=== PATIENT | male | born 1985 | race Caucasian/White ===

== ENCOUNTER 2018-10-06 06:07 | Emergency (ER) | payer SELFPAY ==
[2018-10-06] MEDS ORDERED: CYCLOBENZAPRINE 10 MG TAB ONE (07:06)
[2018-10-06] MEDS ORDERED: IBUPROFEN 400 MG TAB ONE (07:07)
--- NOTE | 2018-10-06 07:15 | ER ---
Nurse's Notes [facility] Name: Rick Kelly Age: 32 yrs Sex: Male : 1985 Arrival Date: 10/06/2018 Time: 06:09 Bed 5 Private MD: Diagnosis: Low back pain Presentation: 10/06 06:10 Presenting complaint: Patient states: that he has been having lower back pain on and fc off for the past 2 months, has gotten worse the past 3 days. Worse with any movement. Denies any urinary or bowel problems. Transition of care: patient was not received from another setting of care. Onset of symptoms was July 2018. Risk Assessment: Do you want to hurt yourself or someone else? Patient reports no desire to harm self or others. Initial Sepsis Screen: Does the patient meet any 2 criteria? HR > 90 bpm. Yes Does the patient have a suspected source of infection? No. Patient's initial sepsis screen is negative. Care prior to arrival: None. 06:10 Method Of Arrival: Ambulatory 06:10 Acuity: EM 4 Triage Assessment: 06:10 General: Appears uncomfortable, Behavior is calm, cooperative, appropriate for age. fc Pain: Complains of pain in low back area Pain currently is 6 out of 10 on a pain scale. Quality of pain is described as aching, throbbing, Pain began gradually, Is continuous, Aggravated by increased activity, repositioning. EENT: No deficits noted. Neuro: Level of Consciousness is awake, alert, obeys commands, Oriented to person, place, time, situation, Appropriate for age. Cardiovascular: No deficits noted. Respiratory: No deficits noted. GI: No deficits noted. : No deficits noted. Derm: Skin is pink, warm \T\ dry. Musculoskeletal: Circulation, motion, and sensation intact. Capillary refill < 3 seconds, Range of motion: intact in all extremities, Reports pain in low back area. Historical: - Allergies: 06:24 Amoxicillin; fc - Home Meds: 06:24 None [Active]; fc - PMHx: 06:24 None; fc - PSHx: 06:24 left ft sx - club ft; fc - Immunization history:: Last tetanus immunization: up to date. - Social history:: Smoking status: Patient/guardian denies using tobacco, Patient uses alcohol, on a daily basis. Patient/guardian denies using street drugs. - Ebola Screening: : Patient negative for fever greater than or equal to 101.5 degrees Fahrenheit, and additional compatible Ebola Virus Disease symptoms Patient denies exposure to infectious person Patient denies travel to an Ebola-affected area in the 21 days before illness onset. Screenin:23 Abuse screen: Denies threats or abuse. Nutritional screening: No deficits noted. Tuberculosis screening: No symptoms or risk factors identified. Fall Risk None identified. Assessment: 06:30 General: Appears in no apparent distress. Behavior is appropriate for age. Pain: lp1 Complains of pain in lumbar area Pain currently is 8 out of 10 on a pain scale. Neuro: Level of Consciousness is awake, alert, obeys commands, Oriented to person, place, time, situation, Gait is steady. Cardiovascular: Patient's skin is warm and dry. Respiratory: Respiratory effort is even, unlabored. GI: No signs and/or symptoms were reported involving the gastrointestinal system. : No signs and/or symptoms were reported regarding the genitourinary system. EENT: No signs and/or symptoms were reported regarding the EENT system. Derm: Skin is pink, warm \T\ dry. Musculoskeletal: Circulation, motion, and sensation intact. Range of motion: intact in all extremities. 07:00 Reassessment: Patient returned from radiology. lp1 Vital Signs: 06:10 BP 124 / 84; Pulse 108; Resp 18; Temp 98.9(O); Pulse Ox 99% on R/A; Weight 124.74 kg fc (R); Height 6 ft. 2 in. (187.96 cm) (R); Pain 6/10; 06:10 Body Mass Index 35.31 (124.74 kg, 187.96 cm) ED Course: 06:09 Patient arrived in ED. ds1 06:10 Arm band placed on Patient placed in an exam room, on a stretcher. 06:23 Triage completed. 06:23 Patient has correct armband on for positive identification. Bed in low position. Call light in reach. Pulse ox on. NIBP on. 06:23 No provider procedures requiring assistance completed. fc 06:40 Tutu Shearer PA is PHCP. cp 06:41 Jose Avalos MD is Attending Physician. cp 06:54 Hays, Larissa, RN is Primary Nurse. lp1 06:58 X-ray completed. Patient tolerated procedure well. jb2 07:00 XRAY Lumbar Spine (3 Views) In Process Unspecified. EDMS 07:07 Primary Nurse role handed off by Larissa Hays, RN 07:07 Rio Burris, RN is Primary Nurse. sg 07:11 Patient did not have IV access during this emergency room visit. lp1 Administered Medications: 06:54 Not Given (Med not available): TORadol 60 mg IM once lp1 07:08 Drug: Flexeril 10 mg Route: PO; lp1 07:09 Drug: Ibuprofen 800 mg Route: PO; lp1 Outcome: 07:14 Discharge ordered by MD. cp 07:21 Discharged to home ambulatory. 07:21 Condition: good 07:21 Discharge instructions given to patient, Instructed on discharge instructions, follow up and referral plans. no drinking with medication, no driving heavy equipment, medication usage, safety practices, Demonstrated understanding of instructions, follow-up care, medications, Prescriptions given X 2. 07:21 Patient left the ED. ss Signatures: Dispatcher [employer] EDPR Rio Burris, RN RN David Escalante jb2 Allie Fuller RN MATTHEW Lalita Flores ds1 Joyce Cooley RN RN Larissa Hays, RN RN lp1 Tutu Shearer PA PA cp
--- NOTE | 2018-10-06 07:15 | EDPHYS ---
Physician Documentation [facility] Name: Rick Kelly Age: 32 yrs Sex: Male : 1985 Arrival Date: 10/06/2018 Time: 06:09 Bed 5 Private MD: ED Physician Jose Avalos HPI: 10/06 06:50 This 32 yrs old Male presents to ER via Ambulatory with complaints of Back cp Pain. 06:50 The patient presents with pain that is acute, with no known mechanism of injury. The cp symptoms are located in the low back. Onset: The symptoms/episode began/occurred 2 month(s) ago, and became worse 3 day(s) ago. The pain does not radiate. Associated signs and symptoms: Pertinent negatives: abdominal pain, chest pain, constipation, fever, hematuria, incontinence, urinary retention, weakness. The problem was sustained from unknown cause. Modifying factors: the patient symptoms are aggravated by standing, walking. Historical: - Allergies: 06:24 Amoxicillin; fc - Home Meds: 06:24 None [Active]; fc - PMHx: 06:24 None; fc - PSHx: 06:24 left ft sx - club ft; fc - Immunization history:: Last tetanus immunization: up to date. - Social history:: Smoking status: Patient/guardian denies using tobacco, Patient uses alcohol, on a daily basis. Patient/guardian denies using street drugs. - Ebola Screening: : Patient negative for fever greater than or equal to 101.5 degrees Fahrenheit, and additional compatible Ebola Virus Disease symptoms Patient denies exposure to infectious person Patient denies travel to an Ebola-affected area in the 21 days before illness onset. ROS: 06:55 Constitutional: Negative for body aches, chills, fever, poor PO intake. cp 06:55 Eyes: Negative for injury, pain, redness, and discharge. cp Exam: 07:00 Constitutional: The patient appears in no acute distress, alert, awake, non-toxic, well cp developed, well nourished. 07:00 Head/Face: Normocephalic, atraumatic. cp 07:00 Eyes: Periorbital structures: appear normal, Conjunctiva: normal, no exudate, no injection, Sclera: no appreciated abnormality, Lids and lashes: appear normal, bilaterally. 07:00 ENT: External ear(s): are unremarkable, Nose: is normal, Mouth: is normal, Posterior pharynx: is normal, airway is patent. 07:00 Neck: ROM/movement: is normal, is supple, without pain, no range of motions limitations, no nuchal rigidity. 07:00 Chest/axilla: Inspection: normal. 07:00 Cardiovascular: Rate: tachycardic. 07:00 Respiratory: the patient does not display signs of respiratory distress, Respirations: normal, no use of accessory muscles, no retractions, no splinting, no tachypnea, Breath sounds: are clear throughout. 07:00 Abdomen/GI: Exam negative for discomfort, distension, guarding, Inspection: abdomen appears normal. 07:00 Back: pain, that is moderate, of the low back area, ROM is painful, Straight leg raises: of both lower extremities does not illicit pain. 07:00 Skin: no rash present. 07:00 Neuro: Motor: moves all fours, strength is normal, Sensation: is normal, Gait: is steady, Deep tendon reflexes are 2+ (normal) in the right patellar, right Achilles, left patellar and left Achilles. Vital Signs: 06:10 BP 124 / 84; Pulse 108; Resp 18; Temp 98.9(O); Pulse Ox 99% on R/A; Weight 124.74 kg fc (R); Height 6 ft. 2 in. (187.96 cm) (R); Pain 6/10; 06:10 Body Mass Index 35.31 (124.74 kg, 187.96 cm) fc MDM: 06:41 Patient medically screened. cp 06:50 Differential diagnosis: Cholelithiasis chronic back pain, ruptured disc, spinal injury, cp sprain, vertebral fracture. 07:13 Data reviewed: vital signs, nurses notes, radiologic studies, plain films. cp 07:13 Test interpretation: by ED physician or midlevel provider: plain radiologic studies. cp Counseling: I had a detailed discussion with the patient and/or guardian regarding: the historical points, exam findings, and any diagnostic results supporting the discharge/admit diagnosis, radiology results, the need for outpatient follow up, a family practitioner, to return to the emergency department if symptoms worsen or persist or if there are any questions or concerns that arise at home. Response to treatment: the patient's symptoms have mildly improved after treatment, and as a result, I will discharge patient. 10/06 06:45 Order name: XRAY Lumbar Spine (3 Views) cp Administered Medications: 06:54 Not Given (Med not available): TORadol 60 mg IM once lp1 07:08 Drug: Flexeril 10 mg Route: PO; lp1 07:09 Drug: Ibuprofen 800 mg Route: PO; lp1 Disposition: 20:32 Co-signature as Attending Physician, Jose Avalos MD. rn Disposition: 10/06/18 07:14 Discharged to Home. Impression: Low back pain. - Condition is Stable. - Discharge Instructions: Back Pain, Adult, Back Exercises, [id number], Form - Excuse from Work, School, or Physical Activity. - Prescriptions for Cyclobenzaprine 10 mg Oral Tablet - take 1 tablet by ORAL route every 8 hours As needed no driving while taking medication; 20 tablet. Diclofenac Sodium 75 mg Oral Tablet, Delayed Release (E.C.) - take 1 tablet by ORAL route 2 times per day; 20 tablet. - Work release form, Family Work Release, Medication Reconciliation Form, Thank You Letter, Antibiotic Education, Prescription Opioid Use form. - Follow up: Private Physician; When: 2 - 3 days; Reason: Worsening of condition. - Problem is new. - Symptoms have improved. Signatures: Dispatcher [employer] Allie Guthrie, RN RN Jose Avalos MD MD rn Smirch, Shelby, RN RN ss Pena, Laura, RN RN lp1 Tutu Shearer PA PA cp Corrections: (The following items were deleted from the chart) 07:21 07:14 10/06/2018 07:14 Discharged to Home. Impression: Low back pain. Condition is ss Stable. Forms are Medication Reconciliation Form, Thank You Letter, Antibiotic Education, Prescription Opioid Use. Follow up: Private Physician; When: 2 - 3 days; Reason: Worsening of condition. Problem is new. Symptoms have improved. cp
--- NOTE | 2018-10-06 08:32 | RAD REPORT ---
EXAM DESCRIPTION: RAD - Lumbar Spine 3 Views - 10/06/2018 7:01 am CLINICAL HISTORY: Back pain FINDINGS: The alignment of the lumbar spine is satisfactory. No fracture or dislocation is seen. Mild spondylosis involves the lumbar spine
== END 2018-10-06 07:21 | disposition home or self-care (01) ==
LOC: ER 06:07
DX: M54.5 Low back pain (principal); Z88.0 Allergy status to penicillin
CPT/HCPCS: 72100; 99284

== ENCOUNTER 2018-12-07 19:06 | Emergency (ER) | payer SELFPAY ==
[2018-12-07] MEDS ORDERED: KETOROLAC 30 MG/ML INJ ONE (19:56)
[2018-12-07] MEDS ORDERED: IPRATROPIUM BROM 0.5MG/2.5ML ONE (19:56)
[2018-12-07] MEDS ORDERED: ALBUTEROL 2.5 MG/3 ML NEB SOL ONE (19:56)
--- NOTE | 2018-12-07 20:03 | RAD REPORT ---
EXAM DESCRIPTION: RAD - Chest Single View - 12/07/2018 7:47 pm CLINICAL HISTORY: Chest pain, rib pain, recent bronchitis diagnosis COMPARISON: None. TECHNIQUE: AP portable chest image was obtained 1943 hours . FINDINGS: Lungs are underinflated. No focal lung parenchymal process. Lung markings are accentuated by body habitus and shallow inspiration. Heart and vasculature are normal. No measurable pleural effu agustin and no pneumothorax. No acute bony abnormality seen. No acute aortic findings suspected. IMPRESSION: No acute cardiopulmonary process.
--- NOTE | 2018-12-07 20:36 | ER ---
Nurse's Notes [facility] Name: Rick Kelly Age: 33 yrs Sex: Male : 1985 Arrival Date: 12/07/2018 Time: 19:12 Bed 13 Private MD: Diagnosis: Strain of muscle and tendon of thorax Presentation: 12/07 19:29 Presenting complaint: Patient states: he is being treated for bronchitis x 2 weeks and bb is on steroids, inhaler, and symbicort but approx an hour PACK P[employer]ER he felt a "pop" on his right side and is having pain to that area 12/08. Transition of care: patient was not received from another setting of care. Onset of symptoms was December 07, 2018. Risk Assessment: Do you want to hurt yourself or someone else? Patient reports no desire to harm self or others. Initial Sepsis Screen: Does the patient meet any 2 criteria? No. Patient's initial sepsis screen is negative. Does the patient have a suspected source of infection? No. Patient's initial sepsis screen is negative. Care prior to arrival: None. 19:29 Method Of Arrival: Ambulatory 19:29 Acuity: EM 3 bb Historical: - Allergies: 19:33 Amoxicillin; bb - Home Meds: 19:33 prednisone 1 mg Oral tab 2 tabs 4 times per day [Active]; Albuterol Inhl [Active]; bb Symbicort inhalation inhalation [Active]; - PMHx: 19:33 None; bb - PSHx: 19:33 foot surgery; bb - Immunization history:: Adult Immunizations up to date. - Social history:: Smoking status: Patient/guardian denies using tobacco, Patient uses alcohol, occasionally. - Ebola Screening: : No symptoms or risks identified at this time. Screenin:30 Abuse screen: Denies threats or abuse. Nutritional screening: No deficits noted. ea Tuberculosis screening: No symptoms or risk factors identified. Fall Risk None identified. Assessment: 19:24 General: Appears in no apparent distress. Behavior is calm, cooperative, appropriate ea for age. Pain: Complains of pain in chest. Neuro: Level of Consciousness is awake, alert, obeys commands, Oriented to person, place, time. Respiratory: Airway is patent Respiratory effort is even, unlabored, Respiratory pattern is regular, symmetrical. Derm: Skin is pink, warm \\T\\ dry. 20:50 Reassessment: Patient and/or family updated on plan of care and expected duration. Pain ea level reassessed. Patient is alert, oriented x 3, equal unlabored respirations, skin warm/dry/pink. Discharge instruction given to patient, verbalized the understanding of instruction. Pt left ED ambulatory accompanied by family. Pt tolerating well. Vital Signs: 19:33 BP 149 / 96; Pulse 103; Resp 16 S; Temp 98.2(O); Pulse Ox 94% on R/A; Weight 124.74 kg bb (R); Height 6 ft. 3 in. (190.50 cm) (R); Pain 9/10; 20:32 BP 122 / 82; Pulse 96; Resp 18; Pulse Ox 96% on R/A; jd2 20:53 BP 138 / 86; Pulse 94; Resp 16; Pulse Ox 98% on R/A; ao 19:33 Body Mass Index 34.37 (124.74 kg, 190.50 cm) ED Course: 19:12 Patient arrived in ED. cf2 19:24 Serg Veloz RN is Primary Nurse. la1 19:24 Primary Nurse role handed off by Serg Veloz RN ea 19:24 Anastasiia Valladares, MATTHEW is Primary Nurse. ea 19:28 Krishna Pearson NP is PHCP. pm1 19:28 Eduar Valerio MD is Attending Physician. pm1 19:30 Patient has correct armband on for positive identification. Bed in low position. Call ea light in reach. Side rails up X2. 19:31 Triage completed. bb 19:33 Arm band placed on Patient placed in an exam room, on a stretcher, on pulse oximetry. bb Family accompanied patient. 19:42 Attending Physician role handed off by Eduar Valerio MD tw4 19:42 Chan Cortes MD is Attending Physician. tw4 19:47 XRAY Chest (1 view) In Process Unspecified. EDMS 20:50 No provider procedures requiring assistance completed. Patient did not have IV access ea during this emergency room visit. Administered Medications: 20:02 Drug: TORadol - Ketorolac 15 mg {Note: administered IM to right deltoid.} Route: IVP; ea Site: Other; 20:52 Follow up: Response: No adverse reaction ao 20:02 Drug: Albuterol - atroVENT (3:1) (2.5 mg - 0.5 mg) 3 ml Route: Nebulizer; ea 20:52 Follow up: Response: No adverse reaction ao 20:52 Drug: traMADol 50 mg {Note: Rass 0.} Route: PO; ao 20:52 Follow up: Response: Medication administered at discharge. ao Outcome: 20:34 Discharge ordered by . pm1 20:50 Discharged to home ambulatory, with family. ea 20:50 Condition: stable 20:50 Discharge instructions given to patient, Instructed on discharge instructions, follow up and referral plans. Demonstrated understanding of instructions, follow-up care. 20:53 Patient left the ED. ao Signatures: Dispatcher [employer] EDShae Cuellar RN Serg Kong RN RN la1 Shabbir Navarrete RN RN ao Marinas, Patrick, CIRCUIT BREAKER SUPERVISOR CIRCUIT BREAKER SUPERVISOR pm1 Cathy Echevarriad2 Anastasiia Valladares RN RN ea Wadley, Terrence, MD MD tw4 Ritu Cooper cf2
--- NOTE | 2018-12-07 20:36 | EDPHYS ---
Physician Documentation [facility] Name: Rick Kelly Age: 33 yrs Sex: Male : 1985 Arrival Date: 12/07/2018 Time: 19:12 Bed 13 Private MD: ED Physician Chan Cortes HPI: 12/07 20:33 This 33 yrs old Male presents to ER via Ambulatory with complaints of Cough, pm1 Right rib pain. 20:33 The patient or guardian reports Pain to right rib cage area with coughing episode. pm1 Severity of symptoms: in the emergency department the symptoms are unchanged. Modifying factors: The symptoms are alleviated by nothing, the symptoms are aggravated by deep breathing. Associated signs and symptoms: Pertinent negatives: chest pain, diarrhea, fever, nausea, vomiting. Patient currently taking treatment for bronchitis for the past 2 weeks diagnosed and treated by his PCP. Patient coughing and felt a pop to right rib cage area today. Historical: - Allergies: 19:33 Amoxicillin; bb - Home Meds: 19:33 prednisone 1 mg Oral tab 2 tabs 4 times per day [Active]; Albuterol Inhl [Active]; bb Symbicort inhalation inhalation [Active]; - PMHx: 19:33 None; bb - PSHx: 19:33 foot surgery; bb - Immunization history:: Adult Immunizations up to date. - Social history:: Smoking status: Patient/guardian denies using tobacco, Patient uses alcohol, occasionally. - Ebola Screening: : No symptoms or risks identified at this time. ROS: 20:33 Constitutional: Negative for fever, chills, and weight loss, Eyes: Negative for injury, pm1 pain, redness, and discharge, ENT: Negative for injury, pain, and discharge, Neck: Negative for injury, pain, and swelling, Cardiovascular: Negative for chest pain, palpitations, and edema, Respiratory: Negative for shortness of breath, cough, wheezing, and pleuritic chest pain, Abdomen/GI: Negative for abdominal pain, nausea, vomiting, diarrhea, and constipation, Back: Negative for injury and pain, MS/Extremity: Negative for injury and deformity, Skin: Negative for injury, rash, and discoloration, Neuro: Negative for headache, weakness, numbness, tingling, and seizure. Exam: 20:33 Constitutional: This is a well developed, well nourished patient who is awake, alert, pm1 and in no acute distress. Head/Face: Normocephalic, atraumatic. Eyes: Pupils equal round and reactive to light, extra-ocular motions intact. Lids and lashes normal. Conjunctiva and sclera are non-icteric and not injected. Cornea within normal limits. Periorbital areas with no swelling, redness, or edema. ENT: Nares patent. No nasal discharge, no septal abnormalities noted. Tympanic membranes are normal and external auditory canals are clear. Oropharynx with no redness, swelling, or masses, exudates, or evidence of obstruction, uvula midline. Mucous membranes moist. Neck: Trachea midline, no thyromegaly or masses palpated, and no cervical lymphadenopathy. Supple, full range of motion without nuchal rigidity, or vertebral point tenderness. No Meningismus. 20:33 Cardiovascular: Regular rate and rhythm with a normal S1 and S2. No gallops, murmurs, or rubs. Normal PMI, no JVD. No pulse deficits. Respiratory: Lungs have equal breath sounds bilaterally, clear to auscultation and percussion. No rales, rhonchi or wheezes noted. No increased work of breathing, no retractions or nasal flaring. Abdomen/GI: Soft, non-tender, with normal bowel sounds. No distension or tympany. No guarding or rebound. No evidence of tenderness throughout. Back: No spinal tenderness. No costovertebral tenderness. Full range of motion. Skin: Warm, dry with normal turgor. Normal color with no rashes, no lesions, and no evidence of cellulitis. MS/ Extremity: Pulses equal, no cyanosis. Neurovascular intact. Full, normal range of motion. 20:33 Chest/axilla: Inspection: normal, Palpation: crepitus, is not appreciated, tenderness, of the right anterior rib cage, that totally reproduces the patient's complaints. 20:33 Neuro: Orientation: is normal, Motor: is normal, moves all fours. Vital Signs: 19:33 BP 149 / 96; Pulse 103; Resp 16 S; Temp 98.2(O); Pulse Ox 94% on R/A; Weight 124.74 kg bb (R); Height 6 ft. 3 in. (190.50 cm) (R); Pain 9/10; 20:32 BP 122 / 82; Pulse 96; Resp 18; Pulse Ox 96% on R/A; jd2 20:53 BP 138 / 86; Pulse 94; Resp 16; Pulse Ox 98% on R/A; ao 19:33 Body Mass Index 34.37 (124.74 kg, 190.50 cm) bb MDM: 19:28 Patient medically screened. pm1 20:33 Data reviewed: vital signs. Data interpreted: Pulse oximetry: on room air is 96 %. pm1 Counseling: I had a detailed discussion with the patient and/or guardian regarding: the historical points, exam findings, and any diagnostic results supporting the discharge/admit diagnosis, radiology results, the need for outpatient follow up, to return to the emergency department if symptoms worsen or persist or if there are any questions or concerns that arise at home. 12/07 19:28 Order name: XRAY Chest (1 view); Complete Time: 20:12 bb Administered Medications: 20:02 Drug: TORadol - Ketorolac 15 mg {Note: administered IM to right deltoid.} Route: IVP; ea Site: Other; 20:52 Follow up: Response: No adverse reaction ao 20:02 Drug: Albuterol - atroVENT (3:1) (2.5 mg - 0.5 mg) 3 ml Route: Nebulizer; ea 20:52 Follow up: Response: No adverse reaction ao 20:52 Drug: traMADol 50 mg {Note: Rass 0.} Route: PO; ao 20:52 Follow up: Response: Medication administered at discharge. ao Disposition: 12/08 06:25 Co-signature as Attending Physician, Chan Cortes MD I agree with the assessment and tw4 plan of care. Disposition: 12/07/18 20:34 Discharged to Home. Impression: Strain of muscle and tendon of thorax. - Condition is Stable. - Discharge Instructions: Acute Bronchitis, Adult, Muscle Strain. - Prescriptions for Tessalon Perles 100 mg Oral Capsule - take 1 capsule by ORAL route every 8 hours As needed; 15 capsule. Tramadol 50 mg Oral Tablet - take 1 tablet by ORAL route every 8 hours as needed; 12 tablet. - Work release form, Medication Reconciliation Form, Thank You Letter, Antibiotic Education, Prescription Opioid Use form. - Follow up: Emergency Department; When: As needed; Reason: Worsening of condition. Follow up: Private Physician; When: 2 - 3 days; Reason: Recheck today's complaints, Continuance of care, Re-evaluation by your physician. - Problem is new. - Symptoms have improved. Signatures: Dispatcher [employer] EDShae Cuellar, RN RN Shabbir Naylor RN RN Krishna Maya, SLIP INJECTOR AND APPLICATOR SLIP INJECTOR AND APPLICATOR pm1 Anastasiia Valladares RN Chan Mobley ea, MD SOUZA tw4 Corrections: (The following items were deleted from the chart) 12/07 20:53 20:34 12/07/2018 20:34 Discharged to Home. Impression: Strain of muscle and tendon of ao thorax. Condition is Stable. Forms are Medication Reconciliation Form, Thank You Letter, Antibiotic Education, Prescription Opioid Use. Follow up: Emergency Department; When: As needed; Reason: Worsening of condition. Follow up: Private Physician; When: 2 - 3 days; Reason: Recheck today's complaints, Continuance of care, Re-evaluation by your physician. Problem is new. Symptoms have improved. pm1
[2018-12-07] MEDS ORDERED: TRAMADOL HCL 50 MG TAB ONE (20:47)
[2018-12-07 22:20] VITALS: BP 138/86; O2SAT 98
== END 2018-12-07 20:53 | disposition home or self-care (01) ==
LOC: ER 19:06
DX: S29.019A Strain of muscle and tendon of unspecified wall of thorax, initial encounter (principal); Z88.1 Allergy status to other antibiotic agents
CPT/HCPCS: 71045; 94640; 96374; 99284

== ENCOUNTER 2022-10-02 08:13 | Emergency (ER) | payer SELFPAY ==
--- NOTE | 2022-10-02 09:21 | RAD REPORT ---
EXAM DESCRIPTION: RAD - Foot Left 3 View - 10/02/2022 8:37 am CLINICAL HISTORY: PAIN COMPARISON: No comparisons TECHNIQUE: Left foot, 3 views. FINDINGS: Medial apex angulated second and third metatarsal neck fractures. A component of these may be chronic, with cortical continuity most anteriorly and medially along the second metatarsal. No di slocation or periosteal reaction. Advanced midfoot and hindfoot degenerative changes, with flattening and remodeling of the talar dome. Pronounced soft tissue swelling about the dorsum of the foot. No air or foreign body in the soft tiss ues. IMPRESSION: Second and third metatarsal neck fractures as above.
--- NOTE | 2022-10-02 09:55 | EDPHYS ---
Physician Documentation [facility] Name: Rick Kelly Age: 36 yrs Sex: Male : 1985 Arrival Date: 10/02/2022 Time: 08:13 Bed 12 Private MD: ED Physician Hermes Sow HPI: 10/02 08:17 This 36 yrs old Male presents to ER via Wheelchair with complaints of Foot Injury. kb 08:17 The patient presents with an injury, pain, swelling, tenderness. The complaints affect kb the left foot. Context: The problem was sustained at home, resulted from the patient falling, the patient can fully bear weight, the patient is able to ambulate. Onset: The symptoms/episode began/occurred yesterday. Modifying factors: The symptoms are alleviated by nothing, the symptoms are aggravated by weight bearing, movement. Associated signs and symptoms: Pertinent positives: swelling, Pertinent negatives: calf tenderness, fever, nausea, numbness, rash, tingling, vomiting, warmth, weakness. Severity of symptoms: At their worst the symptoms were moderate, in the emergency department the symptoms are unchanged. The patient has not experienced similar symptoms in the past. The patient has not recently seen a physician. Pt reports he missed a step going into a pool yesterday and injured his left foot. . Historical: - Allergies: 08:17 Amoxicillin; ld1 - PMHx: 08:17 None; ld1 - PSHx: 08:17 None; ld1 - Immunization history:: Adult Immunizations up to date, Client reports receiving the 2nd dose of the Covid vaccine. - Social history:: Smoking status: Patient denies any tobacco usage or history of. Patient/guardian denies using alcohol. ROS: 08:17 Constitutional: Negative for fever, chills, and weight loss. kb 08:17 MS/extremity: Positive for ecchymosis, pain, swelling, tenderness, of the dorsum of left foot. 08:17 All other systems are negative. Exam: 08:17 Constitutional: This is a well developed, well nourished patient who is awake, alert, kb and in no acute distress. Head/Face: Normocephalic, atraumatic. ENT: Moist Mucous membranes Cardiovascular: Regular rate and rhythm with a normal S1 and S2. No gallops, murmurs, or rubs. No pulse deficits. Respiratory: Respirations even and unlabored. No increased work of breathing. Talking in full sentences Skin: Warm, dry with normal turgor. Normal color. Neuro: Awake and alert, GCS 15, oriented to person, place, time, and situation. Moves all extremities. Normal gait. 08:17 Musculoskeletal/extremity: Extremities: grossly normal except: noted in the dorsum of left foot: ecchymosis, pain, swelling, tenderness, ROM: intact in all extremities, Circulation is intact in all extremities. Sensation intact. Weight bearing: able to fully bear weight. Vital Signs: 08:17 BP 142 / 69; Pulse 76; Resp 18; Temp 98.4(TE); Pulse Ox 100% on R/A; Weight 133.81 kg; ld1 Height 6 ft. 2 in. ; Pain 8/10; 08:17 Body Mass Index 37.88 (133.81 kg, 187.96 cm) ld1 08:17 Pain Scale: Adult ld1 MDM: 08:15 Patient medically screened. kb 08:19 Differential diagnosis: fracture, sprain. Data reviewed: vital signs, nurses notes. kb 09:50 Counseling: I had a detailed discussion with the patient and/or guardian regarding: the kb historical points, exam findings, and any diagnostic results supporting the discharge/admit diagnosis, radiology results, the need for outpatient follow up, a orthopedic surgeon, to return to the emergency department if symptoms worsen or persist or if there are any questions or concerns that arise at home. 10/02 08:17 Order name: Foot Left 3 View XRAY; Complete Time: 09:26 kb 10/02 09:51 Order name: Post-op shoe; Complete Time: 10:14 kb 10/02 09:51 Order name: Crutches; Complete Time: 10:14 kb Administered Medications: No medications were administered Disposition: 14:15 Co-signature as Attending Physician, Hermes Sow DO I was immediately available on-site ms3 in the Emergency Department for consultation in the care of the patient. Disposition Summary: 10/02/22 09:54 Discharge Ordered Location: Home Condition: Stable kb Diagnosis - Displaced fracture of second metatarsal bone, left foot, initial encounter for kb closed fracture - Displaced fracture of third metatarsal bone, left foot, initial encounter for kb closed fracture Followup: kb - With: Emergency Department - When: As needed - Reason: Worsening of condition Followup: kb - With: Private Physician - When: 2 - 3 days - Reason: Recheck today's complaints, Continuance of care, Re-evaluation by your physician Discharge Instructions: - Discharge Summary Sheet kb - Metatarsal Fracture kb Forms: - Medication Reconciliation Form kb - Thank You Letter kb - Antibiotic Education kb - Prescription Opioid Use kb - [email or web address] kb - Work release form ss Signatures: Dispatcher [employer] EDMS Jewell Mcgill, WINDY-Saman [employer]GORITHM DEVELOPER-Hermes Mendez, DO ms3 Aixa Sow, RN RN ld1
--- NOTE | 2022-10-02 09:55 | ER ---
Nurse's Notes [facility] Name: Rick Kelly Age: 36 yrs Sex: Male : 1985 Arrival Date: 10/02/2022 Time: 08:13 Bed 12 Private MD: Diagnosis: Displaced fracture of second metatarsal bone, left foot, initial encounter for closed fracture;Displaced fracture of third metatarsal bone, left foot, initial encounter for closed fracture Presentation: 10/02 08:15 Chief complaint: Patient states: Left ankle pain - missed step and fell into pool. ld1 Coronavirus screen: At this time, the client does not indicate any symptoms associated with coronavirus-19. Ebola Screen: No symptoms or risks identified at this time. Initial Sepsis Screen: Does the patient meet any 2 criteria? No. Patient's initial sepsis screen is negative. Does the patient have a suspected source of infection? No. Patient's initial sepsis screen is negative. Risk Assessment: Do you want to hurt yourself or someone else? Patient reports no desire to harm self or others. Onset of symptoms was October 02, 2022. 08:15 Method Of Arrival: Wheelchair ld1 08:15 Acuity: EM 4 ld1 Triage Assessment: 08:17 General: Appears in no apparent distress. uncomfortable, Behavior is calm, cooperative, ld1 appropriate for age. Pain: Complains of pain in left foot Pain does not radiate. Pain currently is 8 out of 10 on a pain scale. Quality of pain is described as throbbing. EENT: No signs and/or symptoms were reported regarding the EENT system. Neuro: Level of Consciousness is awake, alert, obeys commands, Oriented to person, place, time, situation. Cardiovascular: Capillary refill < 3 seconds Patient's skin is warm and dry. Respiratory: Airway is patent Respiratory effort is even, unlabored. GI: Abdomen is round non-distended. : No signs and/or symptoms were reported regarding the genitourinary system. Derm: No signs and/or symptoms reported regarding the dermatologic system. Musculoskeletal: No signs and/or symptoms reported regarding the musculoskeletal system. Historical: - Allergies: 08:17 Amoxicillin; ld1 - PMHx: 08:17 None; ld1 - PSHx: 08:17 None; ld1 - Immunization history:: Adult Immunizations up to date, Client reports receiving the 2nd dose of the Covid vaccine. - Social history:: Smoking status: Patient denies any tobacco usage or history of. Patient/guardian denies using alcohol. Screenin:21 [facility] ED Fall Risk Assessment (Adult) History of falling in the last 3 months, ss including since admission No falls in past 3 months (0 pts). Abuse screen: Denies threats or abuse. Denies injuries from another. Nutritional screening: No deficits noted. Tuberculosis screening: Never had TB. Assessment: 08:21 General: Appears in no apparent distress. Pain: Complains of pain in dorsum of left ss foot. Neuro: Level of Consciousness is awake, alert, obeys commands, Oriented to person, place, time, situation. Respiratory: Airway is patent Respiratory effort is even, unlabored, Respiratory pattern is regular, symmetrical. Derm: Skin is intact, is healthy with good turgor, Skin is pink, warm \T\ dry. normal. Vital Signs: 08:17 BP 142 / 69; Pulse 76; Resp 18; Temp 98.4(TE); Pulse Ox 100% on R/A; Weight 133.81 kg; ld1 Height 6 ft. 2 in. ; Pain 8/10; 08:17 Body Mass Index 37.88 (133.81 kg, 187.96 cm) ld1 08:17 Pain Scale: Adult ld1 ED Course: 08:14 Patient arrived in ED. rg4 08:14 Hermes Sow DO is Attending Physician. ms3 08:14 Jewell Mcgill FNP-C [facility]. kb 08:17 Triage completed. ld1 08:17 Arm band placed on right wrist. ld1 08:19 Hermes Sow DO is Attending Physician. kb 08:21 Patient has correct armband on for positive identification. ss 08:21 No provider procedures requiring assistance completed. Patient did not have IV access ss during this emergency room visit. 08:39 Foot Left 3 View XRAY In Process Unspecified. EDMS 10:14 Crutch training done. Ortho shoe applied to left foot. ss Administered Medications: No medications were administered Medication: 08:21 VIS not applicable for this client. ss Outcome: 09:54 Discharge ordered by . kb 10:24 Discharged to home ambulatory, via wheelchair, with crutches. ss 10:24 Condition: good 10:24 Discharge instructions given to patient, family, Instructed on discharge instructions, follow up and referral plans. crutch walking, Demonstrated understanding of instructions, follow-up care, crutch walking. 10:24 Patient left the ED. Signatures: Dispatcher [employer] EDMS Jewell Mcgill, WINDY-C WINDY-Joyce Winkler RN RN ss [facility] rg4 Hermes Sow DO DO ms3 Aixa Sow RN RN ld1
[2022-10-02 10:29] VITALS: BP 142/69; TEMP 98.4; O2SAT 100
== END 2022-10-02 10:24 | disposition home or self-care (01) ==
LOC: ER 08:13
DX: S92.322A Displaced fracture of second metatarsal bone, left foot, initial encounter for closed fracture (principal); S92.332A Displaced fracture of third metatarsal bone, left foot, initial encounter for closed fracture
CPT/HCPCS: 99283